=== PATIENT | female | born 1965 | race Caucasian/White ===

== ENCOUNTER → 2017-10-28 | Outpatient (CLI) | payer OTHER ==
[~2017-10-28] MED LIST: ASPI81CH PO; CYAN1000 PO; ESCI10 PO; ESTMED1.5T; Metoprolol Tar100 MG PO; VITAMIN D35000 UNI1 PO
[2017-11-05 16:08] LABS: HPV Genotype 16 Detected (NOTDET); HPV Genotype 18 Not Detected (NOTDET)
[2017-11-12 11:31] LABS: HPV High Risk Other Not Detected (NOTDET)
== END | disposition home or self-care (01) ==
LOC: LAB SHORT 17:14
PROVIDERS: Obstetrics & Gynecology Gynecology
DX: R87.89 Other abnormal findings in specimens from female genital organs (principal)
CPT/HCPCS: 87624; 88142

== ENCOUNTER → 2017-12-10 | Outpatient (CLI) | payer OTHER | END | disposition home or self-care (01) | LOC: PLD 13:41 | DX: R87.89 Other abnormal findings in specimens from female genital organs (principal) | CPT/HCPCS: 88305 ==

== ENCOUNTER → 2019-05-09 | Outpatient (CLI) | payer OTHER ==
[2019-05-11 14:07] LABS: HPV 16 Positive (Negative); HPV 18 Negative (Negative); HPV OTHER HR TYPES Negative (Negative)
== END | disposition home or self-care (01) ==
LOC: LAB SHORT 16:03 → LAB 16:03
PROVIDERS: Nurse Practitioner Women's Health
DX: Z12.4 Encounter for screening for malignant neoplasm of cervix (principal); R87.89 Other abnormal findings in specimens from female genital organs; R87.810 Cervical high risk human papillomavirus (HPV) DNA test positive; Z91.89 Other specified personal risk factors, not elsewhere classified
CPT/HCPCS: 87624; G0123

== ENCOUNTER → 2019-05-26 | Outpatient (CLI) | payer OTHER | END | disposition home or self-care (01) | LOC: PLD 07:46 → LAB SHORT 07:46 | DX: R87.810 Cervical high risk human papillomavirus (HPV) DNA test positive (principal) | CPT/HCPCS: 88305 ==

== ENCOUNTER 2022-10-30 11:16 | Emergency (ER) | payer OTHER ==
[~2022-10-30] VITALS: Ht 157.5 cm; Wt 54.9 kg
[2022-10-30 12:04] LABS: BASOPHILS ABSOLUTE AUTO 0.04 K/mm3 (0.00-0.23); BASOPHILS PERCENT AUTO 0 % (0-2); EOSINOPHILS ABSOLUTE AUTO 0.04 K/mm3 (0.00-0.68); EOSINOPHILS PERCENT AUTO 0 % (0-6); Hematocrit 39.9 % (33.0-51.0); Hemoglobin 14.5 g/dL (11.5-16.0); IMMATURE GRAN ABSOLUTE AUTO 0.03 K/mm3 (0.00-0.10); IMMATURE GRAN PERCENT AUTO 0 % (0-1); LYMPHOCYTES ABSOLUTE AUTO 1.85 K/mm3 (0.84-5.20); LYMPHOCYTES PERCENT AUTO 19 % (21-46); MONOCYTES ABSOLUTE AUTO 0.72 K/mm3 (0.16-1.47); MONOCYTES PERCENT AUTO 8 % (4-13); Mean Corpuscular HGB 33.9 pg (26.0-34.0); Mean Corpuscular HGB Conc 36.3 g/dL (31.5-36.5); Mean Corpuscular Volume 93 fL (80-100); Mean Platelet Volume 9.1 fL (9.1-12.4); NEUTROPHILS ABSOLUTE AUTO 6.88 K/mm3 (1.96-9.15); NEUTROPHILS PERCENT AUTO 72 % (41-73); Platelet Count 297 K/mm3 (150-400); RDW Coefficient Variation 12.2 % (11.7-14.2); RDW Standard Deviation 42.1 fL (35.1-46.3); Red Blood Cell Count 4.28 M/mm3 (3.80-5.20); White Blood Cell Count 9.56 K/mm3 (4.00-11.30)
[2022-10-30 12:25] LABS: Albumin, Blood 3.7 g/dL (3.4-5.0); Albumin/Globulin Ratio 1.1 (0.8-1.8); Bilirubin, Total 0.2 mg/dL (0.1-1.0); Bun/Creatinine Ratio 20.7 (12.0-20.0); Calcium, Blood 9.2 mg/dL (8.5-10.1); Creatinine, Blood 0.97 mg/dL (0.40-1.00); Globulin, Blood 3.4 g/dL (2.2-4.0); Total Protein, Blood 7.1 g/dL (6.4-8.2)
== END 2022-10-30 17:30 | disposition home or self-care (01) ==
LOC: ER 11:16
PROVIDERS: Physician Assistant
DX: R51.9 Headache, unspecified (principal); Z91.040 Latex allergy status; Z88.5 Allergy status to narcotic agent; Z88.0 Allergy status to penicillin; Z88.2 Allergy status to sulfonamides; Z91.048 Other nonmedicinal substance allergy status; Z79.899 Other long term (current) drug therapy; Z79.82 Long term (current) use of aspirin
CPT/HCPCS: 36415; 70450; 70496; 70498; 80053; 85025; J0780; J1200; J1885; Q9967

== ENCOUNTER → 2024-01-25 | Outpatient (CLI) | payer OTHER | END | disposition home or self-care (01) | LOC: LAB 08:00 → LAB SHORT 08:00 | DX: R31.9 Hematuria, unspecified (principal) | CPT/HCPCS: 87077; 87086; 87186 ==

== ENCOUNTER 2024-07-11 07:26 | Day surgery (SDC) | payer OTHER ==
[~2024-07-11] VITALS: Ht 157.5 cm; Wt 72.2 kg
[2024-07-11] VITALS (9 sets, daily range): BP systolic 102–137; BP diastolic 66–106
[~2024-07-11 07:26] MED LIST changes: +ABILIFY MYCITE2 M2 PO; +B-12500 MC2 PO; +BUSP10 PO; +CATAPRES0.1 MG PO; +CLON1 PO; +Crestor40 MG PO; +DYAZIDE 37.5-21 EACH PO; +ESTRADIOL1 MG PO; +KRILL OIL500 MG PO; +LANS15EC PO; +LATA.005SO BOTHEYES; +LEVSOD25 PO; +LOSARTAN POTAS100 M1 PO; +MAGNESIUM OXID500 MG PO; +METF500 PO; +METO100ER PO; +PROG100 PO; +VALA500 PO; +ZOLP10 PO
[2024-07-11] MEDS ORDERED: CeFAZolin Sodium 2,000 MG in NS 100 ML IV SCH (07:40)
[2024-07-11] MEDS ORDERED: Lactated Ringer's 1,000 ML IV SCH (07:40)
[2024-07-11] MEDS ORDERED: QUET25 PO (07:55)
[2024-07-11] MEDS ORDERED: propofoL 20 ML IV ONE (08:13)
[2024-07-11] MEDS ORDERED: FentaNYL Citrate 50 MCG/ML 2 ML Injection ONE (08:14)
--- NOTE | 2024-07-11 08:23 | NUR ---
Ambulatory in Day Surgery History, Chart, Medications and Allergies reviewed before start of procedure.Lungs clear T/O to Auscultation. Patient confirms NPO status and agrees with scheduled surgery. Patient reports completing Chlorhexadine shower X2 prior to admission to hospital.Surgical site prepped with 2% Chlorhexidine cloth wipe. Patient confirms NPO status and agrees with scheduled surgery.
--- NOTE | 2024-07-11 08:48 | NUR ---
PT CLOTHING IN BELONGINGS BAG BELOW GURNEY. PT PURSE AND PHONE WITH HER .
[2024-07-11] MEDS ORDERED: Bupivacaine 0.5% HCl 5 MG/ML 30MLVIAL ONE (09:03)
[2024-07-11] MEDS ORDERED: Midazolam HCl 1MG / ML 2ML Vial IV ONE (09:20)
[2024-07-11] MEDS ORDERED: ePHEDrine Sulfate 50 MG/ML 1ML Injection ONE (09:55)
[2024-07-11] MEDS ORDERED: Ondansetron HCl 2 MG / ML 2ML Vial ONE (10:05)
[2024-07-11] MEDS ORDERED: Dexamethasone Sod Phos 10 MG/ML 1ML VIAL ONE (10:05)
[2024-07-11] MEDS ORDERED: Ketorolac Tromethamine 30mg Vial ONE (10:05)
[2024-07-11] MEDS ORDERED: TraMADol HCl 50 MG Tab PO ONE (11:05)
--- NOTE | 2024-07-11 11:57 | NUR ---
Discharge instructions reviewed with patient. Patient verbalizes understanding. Copy given to patient to take home. Ambulatory in Day Surgery. Discharged via wheelchair to private car for ride home. VSS. PT STABLE FOR D/C.
== END 2024-07-11 12:01 | disposition home or self-care (01) ==
LOC: ORSCMMR 07:26 → ORD 09:00 → ORSCMMR 09:00
PROVIDERS: Surgery
PROC: 0HBT0ZZ Excision of Right Breast, Open Approach (ICD-10-PCS; principal; 2024-07-11 09:00)
DX: N60.91 Unspecified benign mammary dysplasia of right breast (principal); I10 Essential (primary) hypertension; E78.5 Hyperlipidemia, unspecified; F31.9 Bipolar disorder, unspecified; E11.9 Type 2 diabetes mellitus without complications; E03.9 Hypothyroidism, unspecified; E06.3 Autoimmune thyroiditis; F41.1 Generalized anxiety disorder; Z79.84 Long term (current) use of oral hypoglycemic drugs; Z79.899 Other long term (current) drug therapy
CPT/HCPCS: 76098; 82947; 88305; 88307; A9270; J0690; J1100; J1885; J2250; J2405; J2704; J3010; J7120

== ENCOUNTER → 2024-07-25 | Outpatient (CLI) | payer OTHER ==
[~2024-07-25] MED LIST changes: +QUET25 PO
== END ==
LOC: LAB SHORT 18:46 → LAB 18:46
DX: N39.0 Urinary tract infection, site not specified (principal)
CPT/HCPCS: 87086

== ENCOUNTER → 2024-12-03 | Outpatient (CLI) | payer OTHER | END | disposition home or self-care (01) | LOC: LAB SHORT 09:30 → LAB 09:30 | DX: N39.0 Urinary tract infection, site not specified (principal) | CPT/HCPCS: 87086 ==

== ENCOUNTER → 2025-02-27 | Outpatient (CLI) | payer OTHER | LOC: LAB SHORT 18:14 → LAB 18:14 | DX: N39.0 Urinary tract infection, site not specified (principal) | CPT/HCPCS: 87077; 87086; 87186 ==